=== PATIENT | female | born 1970 | race Caucasian/White ===

== ENCOUNTER 2021-01-23 09:43 | Emergency (ER) | payer MEDICARE, SELFPAY ==
[2021-01-23 11:38] LABS: HEMOGLOBIN 12.5 gm/dl (12.3-15.3); RED BLOOD COUNT 4.57 M/UL (4.00-5.10)
[2021-01-23 11:56] LABS: BUN/CREATININE RATIO 10 (0-10)
== END 2021-01-23 15:56 | disposition home or self-care (01) ==
LOC: ER1 09:43
PROVIDERS: Emergency Medicine
DX: R06.02 Shortness of breath (principal); I10 Essential (primary) hypertension; Z20.822 Contact with and (suspected) exposure to COVID-19
CPT/HCPCS: 36600; 71045; 80053; 81001; 82550; 82553; 82803; 83605; 83690; 83735; 83874; 84484; 84703; 85025; 85379; 93005; 96374; 99285; J2405; U0002